=== PATIENT | male | born 1965 | race Caucasian/White ===

== ENCOUNTER 2020-09-14 12:34 | Emergency (ER) | payer MEDICAID, OTHER ==
[~2020-09-14] VITALS: Ht 188 cm; Wt 106.6 kg
[2020-09-14 13:07] VITALS: BP 142/85
== END 2020-09-14 16:22 | disposition home or self-care (01) ==
LOC: ER 12:34
DX: H10.9 Unspecified conjunctivitis (principal)

== ENCOUNTER 2020-09-20 11:57 | Emergency (ER) | payer MEDICAID ==
[~2020-09-20] VITALS: Ht 190.5 cm; Wt 111.1 kg
[2020-09-20 11:57] VITALS: BP 121/92
[2020-09-20] MEDS ORDERED: cefTRIAXone SOD 1,000 MG VL IM ONE (13:45)
== END 2020-09-20 14:18 | disposition home or self-care (01) ==
LOC: ER 11:57
DX: H10.32 Unspecified acute conjunctivitis, left eye (principal); K60.2 Anal fissure, unspecified
CPT/HCPCS: 96372; 99283; J0696